=== PATIENT | female | born 1945 | race Caucasian/White ===

== ENCOUNTER 2018-11-25 06:22 | Day surgery (SDC) | payer MEDICARE ==
[2018-11-25] MEDS: Sodium Chloride 0.9% 1,000 ML IV SCH (07:11)
[2018-11-25] MEDS ORDERED: fentaNYL 100 MCG/2 ML SDV ONE (07:20)
[2018-11-25] MEDS ORDERED: Midazolam 1 MG/ML 2 ML SDV ONE (07:20)
[2018-11-25] MEDS ORDERED: Propofol 200 MG/20 ML SDV ONE ×3 (07:20→08:29)
[2018-11-25] MEDS ORDERED: Lactated Ringers 1,000 ML ONE (08:35)
--- NOTE | 2018-11-25 11:40 | OR ---
DATE OF PROCEDURE: 11/25/2018 SURGEON: Adams Lorenzo MD PROCEDURE: Colonoscopy. FINDINGS: 1. Descending colon polyp, approximately 8 mm, completely removed using snare. 2. Mass at 16 cm, completely removed using snare, tattooed with Cyndee Ink. COMPLICATIONS: None. PUBLICATIONS INSPECTOR: None. ANESTHESIA: MAC. PREOPERATIVE DIAGNOSIS: History of colon polyps. POSTOPERATIVE DIAGNOSIS: History of colon polyps. RISKS: Risks, benefits, alternatives, and limitations including, but not limited to, infection, bleeding, and perforation were explained to the patient, and she wished to proceed. DESCRIPTION OF PROCEDURE: The patient was placed in left lateral decubitus position. Digital rectal exam was performed without abnormality. The scope was introduced and advanced atraumatically to the ileocecal valve. A photo was taken of this. The scope was brought back to the ascending, transverse, descending colon, and retroflexed. In the descending colon, a polyp was identified and completely removed using snare. This was small in nature. The patient is also known to have diverticulosis which is described as mild and mostly limited to sigmoid colon. The sigmoid colon itself was extremely tortuous. At 16 cm, approximately 2 cm mass was encountered. This was tattooed distal with Cyndee Ink. This was then removed in a piecemeal fashion due to its size and location using electrocautery. No other abnormalities on retroflex. The patient tolerated the procedure well. Adams Lorenzo MD /[id number]
== END 2018-11-25 10:05 | disposition home or self-care (01) ==
LOC: JP.SDS 06:22
PROVIDERS: ATTEND Surgery
DX: Z12.11 Encounter for screening for malignant neoplasm of colon (principal); D12.4 Benign neoplasm of descending colon; D12.7 Benign neoplasm of rectosigmoid junction; K57.30 Diverticulosis of large intestine without perforation or abscess without bleeding; I10 Essential (primary) hypertension; E66.9 Obesity, unspecified; Z86.010 Personal history of colon polyps; Z68.35 Body mass index [BMI] 35.0-35.9, adult
CPT/HCPCS: 45385; 88305; J2250; J2704; J3010; J7030; J7120

== ENCOUNTER 2020-08-24 09:26 | Emergency (ER) | payer MEDICARE ==
[2020-08-24] MEDS ORDERED: methylPREDNISolone Sodium Succinate 125 MG/2 ML SDV IM ONE (10:27)
--- NOTE | 2020-08-24 10:33 | EDM.PDOC ---
ED HPI GENERAL MEDICAL PROBLEM - General Chief Complaint: Skin Complaint Stated Complaint: WHOLE BODY COVERED IN HIVES Time Seen by Provider: 08/24/20 10:22 Source of Information: Reports: Patient, RN Notes Reviewed History Limitations: Reports: No Limitations - History of Present Illness INITIAL COMMENTS - FREE TEXT/NARRATIVE: 75-year-old female presents emergency department today with plaint of whole body rash, she has had this before about a year ago only lasted a day at that time this particular event has now been 2 days it is quite itchy and she is uncomfortable she is unaware of any new products or new medication that she is taking - Related Data Allergies Allergy/AdvReac Type Severity Reaction Status Date / Time adhesive tape Allergy Other Verified 08/24/20 10:05 lisinopril Allergy Other Verified 08/24/20 10:05 oxycodone Allergy Other Verified 08/24/20 10:05 Home Meds: Home Meds Losartan [Cozaar] 100 mg PO DAILY 11/18/15 [History] Potassium Chloride [Klor-Con M20] 20 meq PO BID 11/18/15 [History] amLODIPine [Norvasc] 5 mg PO DAILY 11/18/15 [History] Aspirin [Adult Low Dose Aspirin EC] 81 mg PO DAILY 11/21/18 [History] atorvaSTATin [Lipitor] 40 mg PO BEDTIME 11/21/18 [History] hydroCHLOROthiazide [Hydrochlorothiazide] 25 mg PO DAILY 11/25/18 [History] Magnesium 400 mg PO DAILY 08/24/20 [History] predniSONE 20 mg PO DAILY #5 tab 08/24/20 [Rx] Past Medical History HEENT History: Reports: Impaired Vision Cardiovascular History: Reports: Hypertension Gastrointestinal History: Reports: Colon Polyp SAFETY ADMIN ASSISTANT History: Reports: , Prolapsed Uterus, Spontaneous Musculoskeletal History: Reports: Osteoarthritis Endocrine/Metabolic History: Reports: Obesity/BMI 30+ Dermatologic History: Reports: Other (See Below) Other Dermatologic History: hives - Infectious Disease History Infectious Disease History: Reports: Chicken Pox, Measles, Mumps - Past Surgical History HEENT Surgical History: Reports: None Cardiovascular Surgical History: Reports: None GI Surgical History: Reports: Colonoscopy Female Surgical History: Reports: Breast Biopsy, Hysterectomy, Salpingo- Oophorectomy, Other (See Below) Other Female Surgeries/Procedures: Bladder susp w/mesh Endocrine Surgical History: Reports: None Musculoskeletal Surgical History: Reports: Knee Replacement Dermatological Surgical History: Reports: None Social & Family History - Tobacco Use Tobacco Use Status *Q: Never Tobacco User Second Hand Smoke Exposure: No - Caffeine Use Caffeine Use: Reports: Coffee, Tea - Alcohol Use Days Per Week of Alcohol Use: 7 Number of Drinks Per Day: 2 Total Drinks Per Week: 14 - Recreational Drug Use Recreational Drug Use: No ED ROS GENERAL - Review of Systems Review Of Systems: See Below Constitutional: Reports: No Symptoms Respiratory: Reports: No Symptoms Cardiovascular: Reports: No Symptoms Skin: Reports: Rash ED EXAM, SKIN/RASH Exam: See Below Exam Limited By: No Limitations General Appearance: Alert, WD/WN, No Apparent Distress Respiratory/Chest: No Respiratory Distress, Lungs Clear, Normal Breath Sounds, No Accessory Muscle Use, Chest Non-Tender Cardiovascular: Regular Rate, Rhythm, No Murmur Skin: Warm, Dry, Intact, Other (Realized hives arms legs and trunk) Course - Vital Signs Last Recorded V/S: Last Vital Signs Temp 98 F 08/24/20 10:08 Pulse 84 08/24/20 10:08 Resp 23 H 08/24/20 10:08 BP 167/66 H 08/24/20 10:08 Pulse Ox 95 08/24/20 10:08 - Orders/Labs/Meds Meds: Medications Discontinued Medications Generic Name Dose Route Start Last Admin Trade Name Harshil PRN Reason Stop Dose Admin Methylprednisolone Sodium Succinate 125 mg 08/24/20 10:27 Methylprednisolone Sodium Succinate 125 Mg/2 Ml Sdv IM 08/24/20 10:28 ONETIME ONE Departure - Departure Time of Disposition: 10:32 Disposition: Home, Self-Care 01 Condition: Fair Clinical Impression: Urticaria - Discharge Information Instructions: Hives Referrals: Mo Aguirre MD [Primary Care Provider] - Additional Instructions: Start your prednisone tomorrow 1 tablet once a day for 5 days, please follow-up with your primary care next 3 to 5 days for reevaluation, your medications have been faxed to [facility] call return to the emergency department worsening symptoms Sepsis Event Note (ED) - Evaluation Sepsis Screening Result: No Definite Risk - Focused Exam Vital Signs: Vital Signs Temp Pulse Resp BP Pulse Ox 08/24/20 10:08 98 F 84 23 H 167/66 H 95 07/14/21 09:57 98 F 84 23 H 167/66 H 95 - Assessment/Plan Plan: Assessment Acuity = acute Site and laterality = generalized hives Etiology = unknown Manifestations = pruritus Location of injury = Home Lab values = none Plan Dose Solu-Medrol provided in the emergency department prescription written for prednisone 20 mg once a day for 5 days starting tomorrow follow-up primary care 3 to 5 days for reevaluation This note was dictated using Photomedex voice recognition software please call with any questions on syntax or grammar.
== END 2020-08-24 11:02 | disposition home or self-care (01) ==
LOC: JP.ED 09:26
DX: L50.9 Urticaria, unspecified (principal); I10 Essential (primary) hypertension; M19.90 Unspecified osteoarthritis, unspecified site; E66.9 Obesity, unspecified; Z68.37 Body mass index [BMI] 37.0-37.9, adult; Z91.048 Other nonmedicinal substance allergy status; Z88.8 Allergy status to other drugs, medicaments and biological substances; Z88.5 Allergy status to narcotic agent; Z79.82 Long term (current) use of aspirin; Z79.899 Other long term (current) drug therapy
CPT/HCPCS: 96372; 99282; J2930

== ENCOUNTER 2020-12-05 08:05 | Day surgery (SDC) | payer MEDICARE ==
[~2020-12-05 08:05] MED LIST: Propofol 200 MG/20 ML SDV ONE; fentaNYL 100 MCG/2 ML SDV ONE
[2020-12-05] MEDS ORDERED: Sodium Chloride 0.9% 1,000 ML IV SCH (09:00)
[2020-12-05] MEDS ORDERED: Propofol 200 MG/20 ML SDV ONE ×2 (10:09)
--- NOTE | 2020-12-05 12:14 | OR ---
DATE OF PROCEDURE: 12/05/2020 SURGEON: Adams Lorenzo MD PROCEDURE: Colonoscopy. FINDINGS: 1. Sigmoid colon polyp, approximately 8 mm, completely removed using hot snare wire device. 2. Diverticulosis, mild to moderate, mostly limited to sigmoid colon. 3. Very tortuous sigmoid colon. COMPLICATIONS: None. LOCAL COMPANY HAZMAT DRIVER: None. ANESTHESIA: MAC. RISKS: Risks, benefits, alternatives, and limitations including, but not limited to, infection, bleeding, perforation, false positives, and false negatives were explained to the patient, and they wished to proceed. PROCEDURE IN DETAIL: The patient was placed in left lateral decubitus position. Digital rectal exam was performed without abnormality. Scope was introduced and advanced atraumatically to the ileocecal valve. Photo was taken of appendiceal orifice. Scope was brought back to the ascending, transverse, descending colon, and retroflexed. No evidence of old or new blood. No masses. The aforementioned polyp was identified and completely removed using hot snare wire device. No abnormal bleeding was noted after removal. Diverticulosis was described as mild, limited to sigmoid colon without evidence of diverticulitis or bleeding. There was a significantly tortuous colon noted. No abnormalities on retroflexion. The prep was acceptable, approximately 85% of the luminal surface could be seen. Greater than 8 minutes was spent removing the scope. The patient tolerated the procedure well. Adams Lorenzo MD /[id number]
== END 2020-12-05 11:25 | disposition home or self-care (01) ==
LOC: JP.SDS 08:05
PROVIDERS: ATTEND Surgery
DX: Z12.11 Encounter for screening for malignant neoplasm of colon (principal); D12.5 Benign neoplasm of sigmoid colon; K57.30 Diverticulosis of large intestine without perforation or abscess without bleeding; I10 Essential (primary) hypertension; E66.9 Obesity, unspecified; Z68.35 Body mass index [BMI] 35.0-35.9, adult
CPT/HCPCS: 45385; 88305; J2704; J3010; J7030

== ENCOUNTER 2021-01-15 08:44 | Emergency (ER) | payer MEDICARE ==
[2021-01-15] MEDS ORDERED: Famotidine 20 MG Tab PO ONE (09:14)
[2021-01-15] MEDS ORDERED: Cetirizine 10 MG Tab PO ONE (09:14)
[2021-01-15] MEDS ORDERED: Losartan 50 MG Tab PO ONE (09:15)
--- NOTE | 2021-01-15 09:21 | EDM.PDOC ---
ED HPI GENERAL MEDICAL PROBLEM - General Chief Complaint: Cardiovascular Problem Stated Complaint: HIVES AND HIGH BLOOD PRESSURE Time Seen by Provider: 01/15/21 09:05 Source of Information: Reports: Patient, Old Records, RN History Limitations: Reports: No Limitations - History of Present Illness INITIAL COMMENTS - FREE TEXT/NARRATIVE: 75 yo female presents with hives for about a month that have waxed and waned. On of this past week her primary had her double her dose of chlorthalidone and stop her amlodipine 10 mg. So far this change has not benefited her hives, b ut her BP is much higher than it was so she came here to the ER. She took diphenhydramine 25 mg today for the hives only. There has not been SOB or throat swelling. There has been discussion with her primary about a referral to an right of way agent, but it is not yet scheduled. Onset: Today (BP elevation) Onset Date: 01/15/21 Duration: Hour(s): Location: Reports: Generalized Quality: Reports: Other (pain not reported) Severity: Moderate Improves with: Reports: None Worsens with: Reports: Other (removal of amlodipine) Context: Reports: Other (See HPI) Associated Symptoms: Reports: Rash (hives, subacute). Denies: Chest Pain, Diaphoresis, Fever/Chills, Headaches, Nausea/Vomiting, Shortness of Breath, Syncope Treatments FLOTATION OPERATOR: Reports: Other (see below) (See HPI) - Related Data Allergies Allergy/AdvReac Type Severity Reaction Status Date / Time adhesive tape Allergy Rash Verified 01/15/21 08:50 lisinopril Allergy Cough Verified 01/15/21 08:50 oxycodone Allergy Nausea and Verified 01/15/21 08:50 Vomiting Home Meds: Home Meds Potassium Chloride [Klor-Con M20] 20 meq PO BID 11/18/15 [History] amLODIPine [Norvasc] 10 mg PO DAILY 11/18/15 [History] Aspirin [Adult Low Dose Aspirin EC] 81 mg PO DAILY 11/21/18 [History] atorvaSTATin [Lipitor] 40 mg PO BEDTIME 11/21/18 [History] Magnesium 400 mg PO BID 08/24/20 [History] Chlorthalidone 25 mg PO DAILY 11/30/20 [History] diphenhydrAMINE [Benadryl] 25 mg PO Q6H PRN 01/15/21 [History] Past Medical History HEENT History: Reports: Impaired Vision Cardiovascular History: Reports: Hypertension Gastrointestinal History: Reports: Colon Polyp Genitourinary History: Reports: None MANAGER FAMILY History: Reports: , Prolapsed Uterus, Spontaneous Musculoskeletal History: Reports: Arthritis, Osteoarthritis Endocrine/Metabolic History: Reports: Obesity/BMI 30+ Dermatologic History: Reports: Other (See Below) Other Dermatologic History: hives - Infectious Disease History Infectious Disease History: Reports: Chicken Pox, Measles, Mumps - Past Surgical History HEENT Surgical History: Reports: None Cardiovascular Surgical History: Reports: None GI Surgical History: Reports: Appendectomy, Colonoscopy Female Surgical History: Reports: Breast Biopsy, Hysterectomy, Salpingo-Oophorectomy, Other (See Below) Other Female Surgeries/Procedures: Bladder susp w/mesh Endocrine Surgical History: Reports: None Musculoskeletal Surgical History: Reports: Arthroscopic Knee, Knee Replacement Dermatological Surgical History: Reports: None Social & Family History - Family History Family Medical History: No Pertinent Family History - Tobacco Use Tobacco Use Status *Q: Never Tobacco User - Caffeine Use Caffeine Use: Reports: Coffee - Recreational Drug Use Recreational Drug Use: No ED ROS GENERAL - Review of Systems Review Of Systems: See Below Constitutional: Reports: No Symptoms HEENT: Reports: No Symptoms Respiratory: Reports: No Symptoms Cardiovascular: Reports: Blood Pressure Problem. Denies: Chest Pain, Edema (better since stopping amlodipine(legs)), Palpitations Endocrine: Reports: No Symptoms GI/Abdominal: Reports: No Symptoms : Reports: No Symptoms Musculoskeletal: Reports: No Symptoms Skin: Reports: No Symptoms Neurological: Reports: No Symptoms. Denies: Headache ED EXAM, GENERAL - Physical Exam Exam: See Below Exam Limited By: No Limitations General Appearance: Alert, WD/WN, No Apparent Distress Eye Exam: Bilateral Eye: Normal Inspection, PERRL Ears: Normal External Exam, Normal Canal, Hearing Grossly Normal Ear Exam: Bilateral Ear: Auricle Normal, Canal Normal Nose: Normal Inspection, No Blood Throat/Mouth: Normal Inspection, Normal Lips, Normal Oropharynx, Normal Voice, No Airway Compromise Head: Atraumatic, Normocephalic Neck: Normal Inspection Respiratory/Chest: No Respiratory Distress, Lungs Clear, Normal Breath Sounds, No Accessory Muscle Use Cardiovascular: Regular Rate, Rhythm, No Edema Back Exam: Normal Inspection. No: CVA Tenderness (R), CVA Tenderness (L) Extremities: Normal Inspection, Normal Range of Motion, Non-Tender, No Pedal Edema Neurological: Alert, Oriented, CN II-XII Intact, Normal Cognition, No Motor/Sensory Deficits Psychiatric: Normal Affect, Normal Mood Skin Exam: Warm, Dry, Intact, Normal Color, No Rash Course - Vital Signs Last Recorded V/S: Last Vital Signs Temp 36.2 C 01/15/21 08:57 Pulse 73 01/15/21 08:57 Resp 20 01/15/21 08:57 BP 186/84 H 01/15/21 09:48 Pulse Ox 96 01/15/21 08:57 - Orders/Labs/Meds Labs: Laboratory Tests 01/15/21 01/15/21 Range/Units 09:15 09:43 Sodium 138 L (140-148) mmol/L Potassium 2.5 L* (3.6-5.2) mmol/L Chloride 98 L (100-108) mmol/L Carbon Dioxide 29 (21-32) mmol/L Anion Gap 13.5 (5.0-14.0) mmol/L BUN 12 (7-18) mg/dL Creatinine 0.7 (0.6-1.0) mg/dL Est Cr Clr Drug Dosing 48.34 mL/min Estimated GFR (MDRD) > 60 (>60) Glucose 152 H (74-106) mg/dL Calcium 9.3 (8.5-10.1) mg/dL Magnesium 1.5 L (1.8-2.4) mg/dL Meds: Medications Discontinued Medications Generic Name Dose Route Start Last Admin Trade Name Harshil PRN Reason Stop Dose Admin Cetirizine HCl 10 mg 01/15/21 09:14 01/15/21 09:23 Cetirizine 10 Mg Tab PO 01/15/21 09:15 10 mg ONETIME ONE Administration Clonidine HCl 0.1 mg 01/15/21 09:43 01/15/21 09:48 Clonidine 0.1 Mg Tab PO 01/15/21 09:44 0.1 mg ONETIME ONE Administration Famotidine 20 mg 01/15/21 09:14 01/15/21 09:22 Famotidine 20 Mg Tab PO 01/15/21 09:15 20 mg ONETIME ONE Administration Losartan Potassium 50 mg 01/15/21 09:15 01/15/21 09:23 Losartan 50 Mg Tab PO 01/15/21 09:16 50 mg ONETIME ONE Administration Magnesium Oxide 800 mg 01/15/21 09:59 01/15/21 10:06 Magnesium Oxide 400 Mg Tab PO 01/15/21 10:00 800 mg ONETIME ONE Administration Potassium Chloride 40 meq 01/15/21 09:42 01/15/21 09:46 Potassium Chloride 20 Meq Tab.Er PO 01/15/21 09:43 40 meq ONETIME ONE Administration - Re-Assessments/Exams Free Text/Narrative Re-Assessment/Exam: 01/15/21 10:07 Hives are almost gone now. Free Text/Narrative Re-Assessment/Exam: 01/15/21 10:49 BP down to 146 after clonidine. Feeling good. Will d/c Departure - Departure Time of Disposition: 10:55 Disposition: Home, Self-Care 01 Condition: Fair Clinical Impression: Urticaria, Hypokalemia, Hypomagnesemia HTN (hypertension) Qualifiers: Hypertension type: primary hypertension Qualified Code(s): I10 - Essential (primary) hypertension Instructions: Hypertension, Adult, [id number], Hypokalemia Referrals: Mo Aguirre MD [Primary Care Provider] - Forms: ED Department Discharge Additional Instructions: For your hives take these OTC meds: cetirizine 10 mg every 24 hrs famotidine 20 mg a day For your BP take telmisartan/HCT 80/25 one daily starting tomorrow AM Stop your chlorthalidone and do not restart your amlodipine. Continue your potassium and magnesium supplements for now and try to eat foods that are rich in potassium. If your BP at bedtime tonight is greater than 170 systolic(top number), then take clonidine 0.05 to 0.1 mg every 12 hrs as needed for BP that stays greater than 170. Recheck with your provider CHANDU. Sepsis Event Note (ED) - Evaluation Sepsis Screening Result: No Definite Risk - Focused Exam Vital Signs: Vital Signs Temp Pulse Resp BP BP Pulse Ox 01/15/21 09:48 186/84 H 01/15/21 09:23 192/87 H 01/15/21 08:57 36.2 C 73 20 192/87 H 96
[2021-01-15] MEDS ORDERED: Potassium Chloride 20 MEQ Tab.ER PO ONE (09:42)
[2021-01-15] MEDS ORDERED: cloNIDine 0.1 MG Tab PO ONE (09:43)
[2021-01-15] MEDS ORDERED: Magnesium Oxide 400 MG Tab PO ONE (09:59)
== END 2021-01-15 11:13 | disposition home or self-care (01) ==
LOC: JP.ED 08:44
DX: L50.9 Urticaria, unspecified (principal); I10 Essential (primary) hypertension; E87.6 Hypokalemia; E83.42 Hypomagnesemia; E66.9 Obesity, unspecified; Z68.35 Body mass index [BMI] 35.0-35.9, adult; Z88.5 Allergy status to narcotic agent; Z91.048 Other nonmedicinal substance allergy status; Z79.82 Long term (current) use of aspirin; Z79.899 Other long term (current) drug therapy
CPT/HCPCS: 36415; 80048; 83735; 99283; A9270

== ENCOUNTER 2021-01-22 09:54 | Emergency (ER) | payer MEDICARE ==
--- NOTE | 2021-01-22 11:17 | EDM.PDOC ---
ED HPI GENERAL MEDICAL PROBLEM - General Chief Complaint: Cardiovascular Problem Stated Complaint: HIGH BLOOD PRESSURE Time Seen by Provider: 01/22/21 11:00 Source of Information: Reports: Patient, Family History Limitations: Reports: No Limitations - History of Present Illness INITIAL COMMENTS - FREE TEXT/NARRATIVE: 75-year-old female who has been having trouble controlling her blood pressure with medications over the past couple of months. This morning she felt her pulse pounding in her head so she took her blood pressure and it was 200/110. She became anxious, took an extra blood pressure pill and checked it shortly after it was 220/120. She took another clonidine and came into the emergency room. Her symptoms have resolved and she is now at 174/ 84. No chest pain, shortness of breath, nausea or vomiting or headache. Onset: Unknown/Unsure Duration: Waxing/Waning (Blood pressure issues have been waxing and waning for several months) Associated Symptoms: Reports: Other ([place] a pulsing sensation in her head earlier, no symptoms currently) - Related Data Allergies Allergy/AdvReac Type Severity Reaction Status Date / Time adhesive tape Allergy Rash Verified 01/15/21 08:50 lisinopril Allergy Cough Verified 01/15/21 08:50 oxycodone Allergy Nausea and Verified 01/15/21 08:50 Vomiting Home Meds: Home Meds Potassium Chloride [Klor-Con M20] 20 meq PO BID 11/18/15 [History] amLODIPine [Norvasc] 10 mg PO DAILY 11/18/15 [History] Aspirin [Adult Low Dose Aspirin EC] 81 mg PO DAILY 11/21/18 [History] atorvaSTATin [Lipitor] 40 mg PO BEDTIME 11/21/18 [History] Magnesium 400 mg PO BID 08/24/20 [History] Chlorthalidone 25 mg PO DAILY 11/30/20 [History] Telmisartan/Hydrochlorothiazid [Telmisartan-Hctz 80-25 mg Tab] 1 each PO DAILY #30 tablet 01/15/21 [Rx] cloNIDine [Catapres] 0.1 mg PO Q12HR PRN #12 tab 01/15/21 [Rx] diphenhydrAMINE [Benadryl] 25 mg PO Q6H PRN 01/15/21 [History] Losartan [Cozaar] 100 mg PO DAILY 01/22/21 [History] Past Medical History HEENT History: Reports: Impaired Vision Cardiovascular History: Reports: Hypertension Gastrointestinal History: Reports: Colon Polyp Genitourinary History: Reports: None 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: , Prolapsed Uterus, Spontaneous Musculoskeletal History: Reports: Arthritis, Osteoarthritis Endocrine/Metabolic History: Reports: Obesity/BMI 30+ Dermatologic History: Reports: Other (See Below) Other Dermatologic History: hives - Infectious Disease History Infectious Disease History: Reports: Chicken Pox, Measles, Mumps - Past Surgical History HEENT Surgical History: Reports: None Cardiovascular Surgical History: Reports: None GI Surgical History: Reports: Appendectomy, Colonoscopy Female Surgical History: Reports: Breast Biopsy, Hysterectomy, Salpingo- Oophorectomy, Other (See Below) Other Female Surgeries/Procedures: Bladder susp w/mesh Endocrine Surgical History: Reports: None Musculoskeletal Surgical History: Reports: Arthroscopic Knee, Knee Replacement Dermatological Surgical History: Reports: None Social & Family History - Family History Family Medical History: No Pertinent Family History - Tobacco Use Tobacco Use Status *Q: Never Tobacco User Second Hand Smoke Exposure: No - Caffeine Use Caffeine Use: Reports: Coffee ED ROS GENERAL - Review of Systems Review Of Systems: See Below Constitutional: Reports: Malaise. Denies: Fever, Chills HEENT: Denies: Vision Change Respiratory: Denies: Shortness of Breath, Cough Cardiovascular: Denies: Chest Pain, Palpitations GI/Abdominal: Denies: Abdominal Pain, Nausea, Vomiting Skin: Reports: Other (She has had some problems with recurring hives and some inflammatory changes on her lower extremities since being bitten by bugs this summer) Neurological: Denies: Headache Psychiatric: Reports: Anxiety ED EXAM, GENERAL - Physical Exam Exam: See Below Exam Limited By: No Limitations General Appearance: Alert, No Apparent Distress Eye Exam: Bilateral Eye: Normal Inspection Head: Atraumatic Neck: Non-Tender Respiratory/Chest: No Respiratory Distress Cardiovascular: Regular Rate, Rhythm. No: Extra Beats Extremities: No: Pedal Edema Neurological: Alert, Oriented Psychiatric: Anxious Skin Exam: Warm, Dry Course - Vital Signs Last Recorded V/S: Last Vital Signs Temp 98.0 F 01/22/21 10:23 Pulse 57 L 01/22/21 10:23 Resp 18 01/22/21 10:23 BP 174/84 H 01/22/21 10:23 Pulse Ox 97 01/22/21 10:23 - Re-Assessments/Exams Free Text/Narrative Re-Assessment/Exam: 01/22/21 14:29 With her blood pressure 174/84 without any symptoms, I do not feel any further work-up or treatment is needed at this time. She has had her renal function studies checked recently and her primary provider is adjusting her blood pressure medications for control. She will call her tomorrow. Departure - Departure Time of Disposition: 11:22 Disposition: Home, Self-Care 01 Condition: Good Clinical Impression: Essential hypertension Instructions: Hypertension, Adult, [id number] Referrals: PCP,None [Primary Care Provider] - Forms: ED Department Discharge Care Plan Goals: Continue your current medications as discussed. Talk to Dr. Marroquin in the next few days about any medication adjustments that may be helpful. Sepsis Event Note (ED) - Focused Exam Vital Signs: Vital Signs Temp Pulse Resp BP Pulse Ox 01/22/21 10:23 98.0 F 57 L 18 174/84 H 97
== END 2021-01-22 11:23 | disposition home or self-care (01) ==
LOC: JP.ED 09:54
DX: I10 Essential (primary) hypertension (principal); M19.90 Unspecified osteoarthritis, unspecified site; E66.9 Obesity, unspecified; Z68.36 Body mass index [BMI] 36.0-36.9, adult; Z91.048 Other nonmedicinal substance allergy status; Z88.8 Allergy status to other drugs, medicaments and biological substances; Z88.5 Allergy status to narcotic agent; Z79.82 Long term (current) use of aspirin; Z79.899 Other long term (current) drug therapy
CPT/HCPCS: 99283

== ENCOUNTER 2024-07-14 19:33 | Emergency (ER) | payer MEDICARE ==
[2024-07-14] MEDS: Sodium Chloride 0.9% 1,000 ML IV SCH (20:32)
[2024-07-14 20:48] LABS: BASOPHILS ABSOLUTE AUTO 0.03 K/uL (0.00-0.10); BASOPHILS PERCENT AUTO 0.3 % (0.1-1.3); EOSINOPHILS PERCENT AUTO 0.2 % (0.0-5.4); HEMATOCRIT 41.9 % (34.3-46.0); HEMOGLOBIN 14.6 g/dL (11.2-15.5); IMMATURE GRAN ABSOLUTE AUTO 0.03 K/uL (0.00-0.23); IMMATURE GRAN PERCENT AUTO 0.3 % (0.0-0.7); LYMPHOCYTES PERCENT AUTO 7.9 % (11.4-47.7); MEAN CORPUSCULAR HEMOGLOBIN 33.6 pg (31.6-35.5); MEAN CORPUSCULAR HGB CONC 34.8 g/dL (31.6-35.5); MEAN CORPUSCULAR VOLUME 96.5 fL (81.4-99.0); MONOCYTES ABSOLUTE AUTO 0.44 K/uL (0.20-0.90); NEUTROPHILS ABSOLUTE AUTO 7.66 K/uL (1.0-7.6); NEUTROPHILS PERCENT AUTO 86.3 % (40.0-78.1); PLATELET COUNT,PLT 189 K/uL (130-375); RED BLOOD CELL COUNT 4.34 M/uL (3.77-5.24); WHITE BLOOD CELL COUNT,WBC 8.9 K/uL (3.2-11.0)
[2024-07-14 20:50] LABS: EOSINOPHILS ABSOLUTE AUTO 0.02 K/uL (0.00-0.40)
[2024-07-14 21:10] LABS: ALANINE AMINOTRANSFERASE,ALT 20 U/L (12-78); ALBUMIN 3.3 g/dL (3.4-5.0); ALKALINE PHOSPHATASE 80 U/L (46-116); ASPARTATE AMNIOTRANSFERASE,AST 16 U/L (15-37); BLOOD UREA NITROGEN,BUN 20 mg/dL (7-18); CALCIUM 9.1 mg/dL (8.5-10.1); CARBON DIOXIDE,CO2 23 mmol/L (21-32); CHLORIDE,CL 102 mmol/L (100-108); CREATININE 0.9 mg/dL (0.6-1.0); EST CRCL DRUG DOSING (CG) 35.21 mL/min; ESTIMATED GFR 64 mL/min (>60); GLUCOSE RANDOM 166 mg/dL (74-106); POTASSIUM,K 3.4 mmol/L (3.6-5.2); PROTEIN TOTAL,TP 6.5 g/dL (6.4-8.2); SODIUM,NA 134 mmol/L (140-148)
[2024-07-14 21:11] LABS: ANION GAP 12.4 mmol/L (5.0-14.0)
[2024-07-14] MEDS: cefTRIAXone 1 GM in Sodium Chloride 0.9% 50 ML IV ONE (21:36)
== END 2024-07-14 22:37 | disposition home or self-care (01) ==
LOC: JP.ED 19:33
DX: J18.9 Pneumonia, unspecified organism (principal); I10 Essential (primary) hypertension; Z91.048 Other nonmedicinal substance allergy status; Z88.8 Allergy status to other drugs, medicaments and biological substances; Z79.899 Other long term (current) drug therapy
CPT/HCPCS: 36415; 71046; 80053; 83605; 85025; 87040; 96365; 99284; J0696; J7030